=== PATIENT | male | born 1980 | race Caucasian/White ===

== ENCOUNTER 2019-01-31 10:14 | Emergency (ER) | payer BC, OTHER ==
--- NOTE | 2019-01-31 10:43 | ED ---
Complex/Multi-Sys Presentation - HPI Summary HPI Summary: 38 year old M presenting to [facility] complains of shortness of breath, fatigue, confusion, upper back pain, left shoulder pain, throat pain, neck pain which is worse on the left side than the right side, bilateral hand tingliness which is worse on the left than the right, and bilateral hand clamminess since Thursday PM after having a stressful night at work. Patient states he went to work the next day, Thursday01/30/19, where nurses took his blood pressure which was normal and gave patient aspirin x2. Patient states he called [facility] today 01/31/19 and was told to go to the ED. Patient states he hasn 't been able to sleep. Patient states he don't feel like himself, feels as if he 's choking, cannot catch his breath. Patient states he doesn't feel like he's having a panic attack. Patient denies bilateral leg pain and headache. The patient rates the pain 5/10 in severity. Symptoms aggravated by nothing. Symptoms alleviated by nothing. Patient states he doesn't smoke, doesn't vape, doesn't do drugs. 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 - History Of Current Complaint Chief Complaint: EDChestPainROMI Time Seen by Provider: 01/31/19 10:33 Hx Obtained From: Patient Onset/Duration: Lasting Days - 2, Still Present Timing: Constant Severity Currently: Moderate - 5/10 Aggravating Factor(s): Nothing Alleviating Factor(s): Nothing Associated Signs And Symptoms: Positive: Other - insomnia; NEGATIVE: bilateral leg pain, headache - Allergies/Home Medications Allergies/Adverse Reactions: Allergies Allergy/AdvReac Type Severity Reaction Status Date / Time MS Bee Venom [Bee Venom] Allergy Unknown Verified 03/14/13 07:20 Reaction Details MS Codeine [Codeine] Allergy Unknown Verified 03/14/13 07:21 Reaction Details Home Medications: Home Medications Multivitamins/Minerals TAB* [Theragran/minerals TAB*] 1 tab PO DAILY 01/31/19 [ History Confirmed 01/31/19] PMH/Surg Hx/FS Hx/Imm Hx Cardiovascular History: Denies: Other Cardiovascular Problems/Disorders Respiratory History: Reports: Other Respiratory Problems/Disorders - co pain upper left quad abd/chest sharp thru to back x two years GI History: Reports: Other GI Disorders - above History: Reports: Hx Renal Disease - thrombosis, Other Problems/Disorders - one kidney thrombosis Musculoskeletal History: Denies: Other Musculoskeletal History Neurological History: Reports: Other Neuro Impairments/Disorders - tingling hands and feet occasionall Psychiatric History: Denies: Hx Eating Disorder, Hx of Violent Episodes Against Others - Surgical History Surgery Procedure, Year, and Place: left kidney rem inguinal hernia repair left Infectious Disease History: No Infectious Disease History: Denies: Traveled Outside the [place] in Last 30 Days - Family History Known Family History: Positive: Other - father from lymphoma Family History: mother has bipolar disorder, anxiety, alcohol abuse - Social History Alcohol Use: Rare Hx Substance Use: Yes Substance Use Type: Reports: Marijuana Hx Tobacco Use: Yes Smoking Status (MU): Never Smoked Tobacco Review of Systems Positive: Fatigue Positive: Other - throat pain Positive: Shortness Of Breath Musculoskeletal: Negative - bilateral leg pain Positive: Other - upper back pain, left shoulder pain, neck pain which is worse on the left side than the right side Positive: Other - bilateral hand clamminess Neurological: Other - confusion, bilateral hand tingliness which is worse on the left than the right Negative: Headache Positive: Other - insomnia All Other Systems Reviewed And Are Negative: Yes Physical Exam - Summary Physical Exam Summary: Appearance: The patient is well-nourished in no acute distress and in no acute pain. Skin: The skin is warm and dry, and skin color reflects adequate perfusion. HEENT: The head is normocephalic and atraumatic. The pupils are equal and reactive. The conjunctivae are clear and without drainage. Nares are patent and without drainage. Mouth reveals moist mucous membranes, and the throat is without erythema and exudate. The external ears are intact. The ear canals are patent and without drainage. The tympanic membranes are intact. Neck: The neck is supple with full range of motion and non-tender. There are no carotid bruits. There is no neck vein distension. Respiratory: Chest is non-tender. Lungs are clear to auscultation and breath sounds are symmetrical and equal. Cardiovascular: Heart is regular rate and rhythm. There is no murmur or rub auscultated. There is no peripheral edema and pulses are symmetrical and equal. Abdomen: The abdomen is soft and non-tender. There are normal bowel sounds heard in all four quadrants and there is no organomegaly palpated. Musculoskeletal: There is no back tenderness noted. Extremities are non-tender with full range of motion. There is good capillary refill. There is no peripheral edema or calf tenderness elicited. Neurological: Patient is alert and oriented to person, place and time. The patient has symmetrical motor strength in all four extremities. Cranial nerves are grossly intact. Deep tendon reflexes are symmetrical and equal in all four extremities. Psychiatric: The patient has an appropriate affect and does not exhibit any anxiety or depression. Triage Information Reviewed: Yes Vital Signs On Initial Exam: Initial Vitals Temp Pulse Resp BP Pulse Ox 97.2 F 90 18 140/104 97 01/31/19 10:20 01/31/19 10:20 01/31/19 10:20 01/31/19 10:20 01/31/19 10:20 Vital Signs Reviewed: Yes Diagnostics - Vital Signs Vital Signs Temp Pulse Resp BP Pulse Ox 01/31/19 10:20 97.2 F 90 18 140/104 97 - Laboratory Result Diagrams: 01/31/19 10:43 01/31/19 10:43 Lab Statement: Any lab studies that have been ordered have been reviewed, and results considered in the medical decision making process. - CT CT Spine CT Interpretation Completed By: Radiologist Summary of CT Findings: MILD DEGENERATIVE DISC DISEASE AND OSTEOARTHRITIS DESCRIBED ABOVE. ED physician has reviewed this report. CTA Neck CT Interpretation Completed By: Radiologist Summary of CT Findings: NO INTERNAL CAROTID ARTERY STENOSIS BY NASCET CRITERIA. NO APPRECIABLE INTIMAL FLAP TO SUGGEST DISSECTION. ED physician has reviewed this report. - EKG 1021 Cardiac Rate: NL - 84 BPM EKG Rhythm: Sinus Rhythm Summary of EKG Findings: Normal sinus rhythm, normal ST, no ectopy, no STEMI Re-Evaluation - Re-Evaluation First Eval Re-Evaluation Time: 13:46 Comment: patient given update on imaging and blood work results. discussed dispo plan. patient is agreeable to discharge Complex Multi-Symp Course/Dx Course Of Treatment: Mr. Kinney had a very stressful day at work on Thursday and Thursday evening began with the sudden onset of symptoms. My concern was that he was possibly quite hypertensive at the time and that he may have dissected. Labs were obtained as well as CTA and were all negative. I think this is more likely related now to tension and some radicular symptoms. I recommended follow-up with his PCP. - Diagnoses Provider Diagnoses: Cervical radiculopathy Discharge ED - Sign-Out/Discharge Documenting (check all that apply): Patient Departure - Discharge Patient Received Moderate/Deep Sedation with Procedure: No - Discharge Plan Condition: Stable Disposition: HOME Patient Education Materials: Cervical Radiculopathy (ED) Referrals: Ramo Reyna MD [Primary Care Provider] - 2 Days Additional Instructions: Follow up with your primary care provider in the next 2-3 days. Return to the Emergency Department for new or worsening symptoms. - Billing Disposition and Condition Condition: STABLE Disposition: Home - Attestation Statements Document Initiated by Scribe: Yes Documenting Scribe: Renata Hawthorne Provider For Whom George is Documenting (Include Credential): Igor Joiner MD Scribe Attestation: Renata Hazel, scribed for Igor Joiner MD on 01/31/19 at 1607. Scribe Documentation Reviewed: Yes Provider Attestation: The documentation as recorded by the Renata rodriguez accurately reflects the service I personally performed and the decisions made by me, Igor Joiner MD Status of Scribe Document: Viewed
[2019-01-31 10:56] LABS: ABS Eosinophils 0.2 10^3/ul (0-0.6); ABS Monocytes 0.6 10^3/ul (0-0.8); ABS Neutrophils 3.2 10^3/ul (1.5-7.7); Eosinophil % 3.1 %; Hematocrit 45 % (42-52); Hemoglobin 15.4 g/dL (14.0-18.0); Lymphocyte % 42.3 %; Mean Corpuscular HGB Conc 34 g/dL (31-36); Mean Corpuscular Hemoglobin 30 pg (27-31); Mean Corpuscular Volume 88 fL (80-94); Mean Platelet Volume 8.8 fL (7.4-10.4); Nucleated Red Blood Cells % 0.2; Platelet Count 244 10^3/uL (150-450); Red Blood Count 5.17 10^6 /uL (4.18-5.48); Red Cell Distribution Width 13 % (10-15); White Blood Count 7.1 10^3/uL (3.5-10.8)
[2019-01-31 11:09] LABS: INR 0.93 (0.82-1.09)
[2019-01-31 11:16] LABS: Albumin 4.2 g/dL (3.2-5.2); Albumin/Globulin Ratio 1.7 (1-3); BUN/Creatinine Ratio 12.3 (8-20); Calcium 8.9 mg/dL (8.6-10.3); EGFR African American 94.1 (>60); EGFR Non-African American 77.8 (>60); Globulin 2.5 g/dL (2-4); Potassium 3.9 mmol/L (3.5-5.0); Total Bilirubin 0.5 mg/dL (0.2-1.0); Total Protein 6.7 g/dL (6.4-8.9)
[2019-01-31] MEDS ORDERED: Iodixanol* (CONTRAST) 320 MG/ML 100 ML SDV IV ONE (12:00)
[2019-01-31 14:05] VITALS: BP 120/74
== END 2019-01-31 13:50 | disposition home or self-care (01) ==
LOC: ED 10:14
DX: M54.12 Radiculopathy, cervical region (principal); R06.02 Shortness of breath; R53.83 Other fatigue; R41.0 Disorientation, unspecified; M54.9 Dorsalgia, unspecified; G47.00 Insomnia, unspecified; Z79.899 Other long term (current) drug therapy
CPT/HCPCS: 36415; 70498; 72125; 80053; 84484; 85025; 85610; 93005; 99283; Q9967